=== PATIENT | male | born 1980 | race African-American/Black ===

== ENCOUNTER → 2017-12-11 | Outpatient (CLI) | payer OTHER ==
[2017-12-11 12:00] LABS: BASOPHIL % 0.2 % (0-2); PLATELET COUNT 213 x10^3mcL (130-400); RED CELL DISTRIBUTION WIDTH 14.9 % (11.5-14.5)
[2017-12-11 12:25] LABS: ALBUMIN 4.3 g/dL (3.4-5.0); ALKALINE PHOSPHATASE 88 U/L (46-116); ALT/SGPT 27 U/L (16-63); AST/SGOT 21 U/L (15-37); BILIRUBIN TOTAL 0.44 mg/dL (0.20-1.00); CARBON DIOXIDE 26.1 mmol/L (21-32); CHLORIDE SERUM 100 mmol/L (98-107); GLUCOSE SERUM 76 mg/dL (74-106); HDL CHOLESTEROL 48 mg/dL (40-60); POTASSIUM SERUM 4.6 mmol/L (3.5-5.1); SODIUM SERUM 139 mmol/L (136-145); TOTAL PROTEIN, SERUM 7.9 g/dL (6.4-8.2); TRIGLYCERIDES 83 mg/dL (<150)
[2017-12-11 12:36] LABS: FREE T4 1.22 ng/dL (0.76-1.46); T4(THYROXINE) 7.4 ug/dL (4.7-13.3)
[2017-12-11 12:38] LABS: T3 TOTAL 0.75 ng/mL
[2017-12-11 12:50] LABS: CHOLESTEROL 204 mg/dL (<200); CHOLESTEROL/HDL RATIO 4.3
[2017-12-11 12:55] LABS: CALCIUM 9.6 mg/dL (8.5-10.1); GFR1 > 60 mL/min
[2017-12-13 16:31] LABS: VITAMIN D 25-HYDROXY 30.6 ng/mL (30.0-100.0)
== END | disposition home or self-care (01) ==
LOC: LB 10:01
PROVIDERS: Family Medicine
DX: N48.9 Disorder of penis, unspecified (principal); Z76.89 Persons encountering health services in other specified circumstances; Z11.3 Encounter for screening for infections with a predominantly sexual mode of transmission
CPT/HCPCS: 80201; 84402; 84403; 84439; 87491; 87591

== ENCOUNTER → 2019-05-05 | Outpatient (CLI) | payer OTHER ==
[2019-05-05 10:53] LABS: BASOPHIL % 0.5 % (0-2); PLATELET COUNT 245 x10^3mcL (130-400); RED CELL DISTRIBUTION WIDTH 14.7 % (11.5-14.5)
[2019-05-05 11:26] LABS: ALBUMIN 4.1 g/dL (3.4-5.0); ALKALINE PHOSPHATASE 79 U/L (46-116); ALT/SGPT 33 U/L (16-63); AST/SGOT 24 U/L (15-37); BILIRUBIN TOTAL 0.53 mg/dL (0.20-1.00); CALCIUM 9.5 mg/dL (8.5-10.1); CHLORIDE SERUM 108 mmol/L (98-107); CREATININE SERUM 1.1 mg/dL (0.7-1.3); GFR1 > 60 mL/min; GLUCOSE SERUM 99 mg/dL (74-106); HDL CHOLESTEROL 49 mg/dL (40-60); POTASSIUM SERUM 4.2 mmol/L (3.5-5.1); SODIUM SERUM 144 mmol/L (136-145); TOTAL PROTEIN, SERUM 7.4 g/dL (6.4-8.2); TRIGLYCERIDES 78 mg/dL (<150)
[2019-05-05 11:31] LABS: CHOLESTEROL 205 mg/dL (<200); CHOLESTEROL/HDL RATIO 4.2
[2019-05-06 04:11] LABS: RUBEOLA AB IGG 49.6 AU/mL (Immune >29.9)
== END | disposition home or self-care (01) ==
LOC: LB 10:05
DX: I10 Essential (primary) hypertension (principal); E66.9 Obesity, unspecified; R68.82 Decreased libido; Z01.84 Encounter for antibody response examination
CPT/HCPCS: 84402; 84403

== ENCOUNTER → 2020-08-29 | Outpatient (CLI) | payer OTHER | END | disposition home or self-care (01) | LOC: LB 10:02 | PROVIDERS: ATTEND Urology | DX: R79.89 Other specified abnormal findings of blood chemistry (principal); Z80.42 Family history of malignant neoplasm of prostate | CPT/HCPCS: 84153; 84402; 84403 ==

== ENCOUNTER → 2021-01-08 | Outpatient (CLI) | payer OTHER ==
[2021-01-08 08:06] LABS: BASOPHIL % 1.3 % (0.2-1.5); PLATELET COUNT 283 x10^3mcL (152-348)
[2021-01-08 08:14] LABS: RED CELL DISTRIBUTION WIDTH 14.6 % (12.1-16.2)
== END | disposition home or self-care (01) ==
LOC: LB 07:34
PROVIDERS: ATTEND Urology
DX: R79.89 Other specified abnormal findings of blood chemistry (principal)
CPT/HCPCS: 84402; 84403